=== PATIENT | female | born 1995 | race Caucasian/White ===

== ENCOUNTER 2025-05-03 02:18 | Emergency (ER) | payer BC ==
[~2025-05-03] VITALS: Ht 154.9 cm; Wt 64.2 kg
[2025-05-03 02:27] VITALS: O2SAT 100
[2025-05-03 03:02] LABS: BASOPHILS % 0.6 % (0.0-2.0); EOSINOPHILS % 1.2 % (0.0-5.0); HEMATOCRIT. 35.8 % (36.0-48.0); HEMOGLOBIN. 12.0 g/dL (12.0-16.0); LYMPHOCYTES % 21.3 % (20.0-50.0); MEAN PLATELET VOLUME 10.2 fl (7.4-10.4); MONOCYTES % 5.1 % (2.0-8.0); NEUTROPHILS % 71.8 % (40.0-76.0); PLATELET 194 x1000/uL (130-400); RED BLOOD CELL COUNT 3.99 mill/uL (4.2-5.4); RED CELL DISTRIBUTION WIDTH 14.1 % (11.6-14.6)
[2025-05-03] MEDS: MORPHINE SULFATE 4 MG/ML INJ (FOR IV/IM USE) IV ONE (03:09)
[2025-05-03] MEDS: ONDANSETRON HCL 4MG/2ML INJ IV ONE (03:09)
[2025-05-03 03:23] LABS: CREATININE 0.7 mg/dL (0.6-1.0); UREA NITROGEN BLOOD 9 mg/dL (9-23)
[2025-05-03 03:25] LABS: ASPARTATE AMINOTRANSFERASE 12 IU/L (<34); BILIRUBIN DIRECT 0.1 mg/dL (<=3.0)
[2025-05-03 03:26] LABS: BILIRUBIN TOTAL 0.5 mg/dL (0.1-1.0); PROTEIN TOTAL 6.7 g/dL (6.0-8.3)
[2025-05-03 03:54] LABS: B-HCG QUANTITATIVE 5500 mIU/mL (<6)
[2025-05-03] MEDS: SODIUM CHLORIDE 0.9% 1,000 ML IV ONE (03:58)
[2025-05-03 04:05] LABS: CLARITY URINE CLEAR (CLEAR); COLOR URINE ORANGE (YELLOW); GLUCOSE URINE NEGATIVE (NEGATIVE); KETONES URINE 1+ (NEGATIVE); LEUKOCYTE ESTERASE URINE TRACE (NEGATIVE); NITRITE URINE NEGATIVE (NEGATIVE); OCCULT BLOOD URINE 3+ (NEGATIVE); PH URINE 7.0 (4.5-8.0); PROTEIN URINE 3+ (NEGATIVE); SPECIFIC GRAVITY URINE 1.013 (1.005-1.030); UROBILINOGEN URINE 0.2 E.U./dL (0.2-1.0)
[2025-05-03 04:13] LABS: BACTERIA URINE TRACE; RBC URINE TNTC /hpf (0-2); SQUAMOUS EPITHELIAL CELL URINE FEW /lpf (RARE/1+)
[2025-05-03] MEDS ORDERED: AMOX-494 MT (05:03)
[2025-05-03] MEDS ORDERED: NAPR-1176 MT (05:03)
[2025-05-03 05:13] VITALS: BP 107/70; PULSE 77; RESP 13; TEMP 36.8; O2SAT 100
== END 2025-05-03 05:23 | disposition home or self-care (01) ==
LOC: ER 02:18
DX: O03.9 Complete or unspecified spontaneous abortion without complication (principal); N93.8 Other specified abnormal uterine and vaginal bleeding; R10.20 Pelvic and perineal pain unspecified side; R93.89 Abnormal findings on diagnostic imaging of other specified body structures; Z79.1 Long term (current) use of non-steroidal anti-inflammatories (NSAID)
CPT/HCPCS: 99285; 86870; 96374; 76801; 96361; 96375; 80076; 80048; 81003; 81025; 84702; 85025; 86850; 86900; 86901; 36415; 76817; J2405; J2270; J7030